=== PATIENT | male | born 1995 | race Hispanic/Latino ===

== ENCOUNTER 2018-03-28 11:24 | Emergency (ER) | payer BC, SELFPAY | END 2018-03-28 12:46 | disposition home or self-care (01) | LOC: ERS 11:24 | DX: A63.0 Anogenital (venereal) warts (principal) | CPT/HCPCS: 99282 ==

== ENCOUNTER 2018-04-01 10:32 | Emergency (ER) | payer SELFPAY ==
[2018-04-04 20:36] LABS: Chlamydia by PCR Not Detected (NotDetected); GC by PCR Not Detected (NotDetected)
== END 2018-04-01 11:38 | disposition home or self-care (01) ==
LOC: ERS 10:32
DX: R59.1 Generalized enlarged lymph nodes (principal)
CPT/HCPCS: 87491; 87591; 99283

== ENCOUNTER 2018-08-10 22:20 | Emergency (ER) | payer SELFPAY | END 2018-08-11 00:37 | disposition left against medical advice (07) | LOC: ERS 22:20 | DX: Z53.21 Procedure and treatment not carried out due to patient leaving prior to being seen by health care provider (principal) ==

== ENCOUNTER 2018-12-04 13:59 | Emergency (ER) | payer SELFPAY | END 2018-12-04 14:39 | disposition home or self-care (01) | LOC: ERS 13:59 | DX: J02.9 Acute pharyngitis, unspecified (principal) | CPT/HCPCS: 87081; 87430; 99283 ==

== ENCOUNTER 2019-03-15 22:16 | Emergency (ER) | payer SELFPAY | END 2019-03-15 23:27 | disposition left against medical advice (07) | LOC: ERS 22:16 | DX: Z53.21 Procedure and treatment not carried out due to patient leaving prior to being seen by health care provider (principal) ==

== ENCOUNTER 2023-01-20 15:32 | Emergency (ER) | payer SELFPAY ==
[2023-01-20] MEDS ORDERED: Ondansetron ODT 4 MG TAB ONE (15:57)
[2023-01-20] MEDS ORDERED: Acetaminophen 500 MG TAB ONE (15:57)
[2023-01-20 16:06] LABS: Bacteria/HPF None Seen HPF (None Seen); Bilirubin Negative (Negative); Blood, Urine Negative (Negative); CAUTI Indications for Culture Pelvic or flank pain; Clarity Clear (Clear); Glucose, Urine (Dipstick) Normal (Negative); Ketone, Urine 60 mg/dL (Negative); Leukocyte Negative Leu/uL (Negative); Nitrite Negative (Negative); Protein, Urine (Dipstick) 20 mg/dL (Neg-Trace); RBC/HPF 0-3 HPF (0-3); Specific Gravity, Urine 1.018 (1.002-1.036); Squamous Epithelial None Seen HPF (0-3); Urobilinogen Normal mg/dL (Less than 2); WBC/HPF 0-3 HPF (0-3); pH, Urine 6.5 (5.0-9.0)
[2023-01-20 16:09] LABS: Urine Culture Reflex No No
[2023-01-20 16:39] LABS: SARS-CoV-2 NAA Rapid Test Not Detected (NotDetected)
== END 2023-01-20 17:19 | disposition home or self-care (01) ==
LOC: ERS 15:32
DX: J10.1 Influenza due to other identified influenza virus with other respiratory manifestations (principal); Z20.822 Contact with and (suspected) exposure to COVID-19; Z87.891 Personal history of nicotine dependence
CPT/HCPCS: 71045; 81001; Q0162